=== PATIENT | male | born 1965 | race American Indian/Alaskan Native ===

== ENCOUNTER 2019-09-25 15:09 | Emergency (ER) | payer BC ==
--- NOTE | 2019-09-25 16:15 | Event Note ---
ED Screening Note ED Screening Note: knot to the posterior shoulder, states he has tingling in his fingers states he has neck pain states he has tingling in his right 4th and 5th finger PMHx Afib metoprolol no allergies to meds This initial assessment/diagnostic orders/clinical plan/treatment(s) is/are subject to change based on patients health status, clinical progression and re- assessment by fellow clinical providers in the ED. Further treatment and workup at subsequent clinical providers discretion. Patient/guardian urged not to elope from the ED as their condition may be serious if not clinically assessed and managed. Initial orders include: XR c-spine
--- NOTE | 2019-09-25 17:13 | XRay Report ---
CERVICAL SPINE 3 VIEWS INDICATION: Neck pain, tingling in fingers. COMPARISON: No relevant prior imaging study available. FINDINGS: VERTEBRAE: No acute fracture. There is reversal of the cervical lordosis. DISC SPACES: Mild to moderate discogenic degenerative changes are noted at C5-C6 and C6-C7. FACET JOINTS: No significant abnormality. SOFT TISSUES: No significant abnormality. ADDITIONAL FINDINGS: No additional significant findings. IMPRESSION: 1. No acute findings. 2. Mild to moderate cervical spondylosis. Signer Name: Benny Oliver MD Signed: 09/25/2019 5:08 PM Workstation Name: [id number]
[2019-09-25] MEDS ORDERED: dexAMETHasone 20 MG/5 ML VIAL IM ONE (20:12)
[2019-09-25] MEDS ORDERED: KETOROLAC 30 MG/1 ML INJ IM ONE (20:12)
--- NOTE | 2019-09-25 21:02 | Emergency Department Report ---
Upper Extremity - HPI Chief Complaint: Extremity Problem,Nontraumatic Stated Complaint: BACK PAIN, NUMB DUM RIGHT ARM Time Seen by Provider: 09/25/19 16:12 Upper Extremity: Right Shoulder Occurred When: >5 Days Mechanism: Unsure Severity: moderate Symptoms: Yes Pain with Movement, Yes Numbness (right index and pinky finger ), No Deformity, No Limited Range of Movement, No Weakness, No Swelling, No Bruising/Ecchymosis, No Laceration or Abrasion Other History: hx of cervical radiculopathy radiating to right hand for 3 yrs. no new fall injury or trauma, pain is 4/10 , exacerbated by palpation and "overuse", relieved by rest and nsaids periodically. ED Review of Systems ROS: Stated complaint: BACK PAIN, NUMB DUM RIGHT ARM Other details as noted in HPI Constitutional: denies: chills, fever Eyes: denies: eye pain, eye discharge, vision change ENT: denies: ear pain, throat pain Respiratory: denies: cough, shortness of breath, wheezing Cardiovascular: denies: chest pain, palpitations Endocrine: no symptoms reported Gastrointestinal: denies: abdominal pain, nausea, diarrhea Genitourinary: denies: urgency, dysuria Musculoskeletal: arthralgia, myalgia. denies: back pain, joint swelling Skin: denies: rash, lesions Neurological: denies: headache, weakness, paresthesias Psychiatric: denies: anxiety, depression Hematological/Lymphatic: denies: easy bleeding, easy bruising ED Past Medical Hx - Past Medical History Previous Medical History?: Yes Additional medical history: A fib - Surgical History Past Surgical History?: Yes Hx Cholecystectomy: Yes - Social History Smoking Status: Never Smoker Substance Use Type: None - Medications Home Medications: Home Medications Medication Instructions Recorded Confirmed Last Taken Type Cyclobenzaprine [Flexeril] 10 mg PO TID PRN #30 tablet 09/25/19 Unknown Rx Naproxen 500 mg PO BID #30 tablet 09/25/19 Unknown Rx predniSONE [Deltasone] 40 mg PO QDAY 5 Days #10 tab 09/25/19 Unknown Rx Upper Extremity Exam - Exam General: Vital signs noted. No distress. Alert and acting appropriately. Head and Torso: Yes Neck Tenderness (right lateral neck muscle pain), No HEENT Abnormality, No Chest/Lungs Abnormality, No Abdominal Tenderness, No Back Tenderness Shoulder Exam: Yes Normal Range of Motion in Shoulder, No Shoulder Tenderness, No Clavicle Tenderness, No Shoulder Deformity, No AC Joint Tenderness Arm Exam: No Arm/Humerus Tenderness, No Arm Deformity Elbow: No Elbow Tenderness, No Normal Range of Motion in Elbow, No Elbow Deformity Forearm: No Forearm Tenderness, No Forearm Deformity, No Pain with Pronation, No Pain with Supination Wrist: No Wrist Tenderness, No Normal ROM in Wrist, No Wrist Deformity, No Snuffbox Tenderness, No Pain with Axial Thumb Compression Hand: Yes Normal ROM in Digit(s), No Hand Tenderness, No Hand Deformity, No Digit Tenderness, No Digit(s) Deformity, No Tendon Dysfunction (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 COMPARISON: No relevant prior imaging study available. FINDINGS: VERTEBRAE: No acute fracture. There is reversal of the cervical lordosis. DISC SPACES: Mild to moderate discogenic degenerative changes are noted at C5-C6 and C6-C7. FACET JOINTS: No significant abnormality. SOFT TISSUES: No significant abnormality. ADDITIONAL FINDINGS: No additional significant findings. IMPRESSION: 1. No acute findings. 2. Mild to moderate cervical spondylosis. Signer Name: Benny Oliver MD Signed: 09/25/2019 4:08 PM Workstation Name: [id number] - Medical Decision Making This is radiculopathy to the ulnar distribution, pain is improved with NSAIDs and steroids given in ED plan continue to follow Ortho, NSAIDs, short burst steroids, muscle relaxants, neck and shoulder exercises follow-up with Ortho in 2 to 3 days. Patient verbalized agreement and understanding of discharge plan will be DC'd home stable condition at this time Critical care attestation.: If time is entered above; I have spent that time in minutes in the direct care of this critically ill patient, excluding procedure time. ED Disposition Clinical Impression: Cervical radiculopathy, Radicular pain in right arm Disposition: DC-01 TO HOME OR SELFCARE Is pt being admited?: No Does the pt Need Aspirin: No Condition: Stable Instructions: Cervical Radiculopathy (ED) Prescriptions: predniSONE [Deltasone] 40 mg PO QDAY 5 Days #10 tab Cyclobenzaprine [Flexeril] 10 mg PO TID PRN #30 tablet PRN Reason: Muscle Spasm Naproxen 500 mg PO BID #30 tablet Referrals: ALEXANDER ONEAL MD [Staff Physician] - 3-5 Days Forms: Work/School Release Form(ED) Time of Disposition: 21:05
[2019-09-25 21:12] VITALS: BP 131/87
== END 2019-09-25 21:10 | disposition home or self-care (01) ==
LOC: ED 15:09
DX: M54.12 Radiculopathy, cervical region (principal); M79.601 Pain in right arm; I48.91 Unspecified atrial fibrillation; Z90.49 Acquired absence of other specified parts of digestive tract; Z79.899 Other long term (current) drug therapy
CPT/HCPCS: 72040; 96372; 99283; J1100; J1885